=== PATIENT | male | born 1940 | race Caucasian/White ===

== ENCOUNTER 2018-05-12 13:06 | Emergency (ER) | payer MEDICARE, OTHER ==
[~2018-05-12] VITALS: Ht 172.7 cm; Wt 79.4 kg
--- NOTE | 2018-05-12 14:58 | Diagnostic Imaging Report ---
EXAMINATION: Head CT without contrast HISTORY: Status post fall x2, near syncope, head trauma, head pain, scalp laceration COMPARISON: None. TECHNIQUE: Multidetector axial images were obtained without contrast from the foramen magnum to the vertex . The images were reconstructed using brain and bone algorithms. Thin section brain images were reformatted into coronal and sagittal planes. Image quality: Motion/streaking artifact limits the evaluation of the skull base and posterior cranial fossa. Dose modulation, iterative reconstruction, and/or weight based adjustment of the mA/kV was utilized to reduce the radiation dose to as low as reasonably achievable. FINDINGS: Parenchyma: 1. Few scattered white matter hypodensities, most likely nonspecific minimal chronic microvascular ischemic changes, within normal limits for age. 2. No mass or hemorrhage. No CT evidence of acute territorial vascular insult. Extra-axial spaces:No abnormal density. No extra-axial fluid collections Brain volume: Normal for age. Ventricles: No hydrocephalus or displacement. Arteries: No density suggestive of thrombus. Dural sinuses: No abnormal density. Extra-axial spaces: No abnormal density. Foramen magnum: No mass, Chiari malformation, or basilar invagination. Sella: No obvious mass. Paranasal/mastoid sinuses: Imaged portions unremarkable. Skull/Scalp: No lytic or blastic lesions. No fractures. IMPRESSION: No intracranial abnormalities, particularly no posttraumatic hemorrhage. Signed by: Dr. Leatha Epps M.D. on 05/12/2018 2:54 PM
--- NOTE | 2018-05-12 15:08 | Diagnostic Imaging Report ---
Examination: Single AP view of the chest. COMPARISON: None. INDICATION: Syncope. Pain. DISCUSSION: Lines/tubes: None. Lungs: The lungs are well inflated and clear. There is no evidence of pneumonia or pulmonary edema. Pleura: There is no pleural effusion or pneumothorax. Heart and mediastinum: Cardiomediastinal silhouette is unremarkable. Pulmonary vasculature is normal. Bones and soft tissues: No acute bony abnormalities. Degenerative changes in the thoracic spine. IMPRESSION: 1. No acute cardiopulmonary abnormalities. Signed by: Dr. Thomas Dahl M.D. on 05/12/2018 3:05 PM
[2018-05-12 15:21] LABS: BASOPHILS % 0.5 % (0.0-1.0); EOSINOPHILS # (AUTO) 0.1 (0.0-0.4); EOSINOPHILS % 2.1 % (0.0-6.0); HEMATOCRIT 38.5 % (38.2-49.6); HEMOGLOBIN 12.8 g/dL (14.0-18.0); LYMPHOCYTES # (AUTO) 1.8 (1.0-3.2); LYMPHOCYTES % 31.5 % (18.0-39.1); MEAN CORPUSCULAR HGB CONC 33.2 g/dL (31-35); MEAN CORPUSCULAR VOLUME 96.3 fL (81-99); MONOCYTES # (AUTO) 0.6 (0.2-0.8); MONOCYTES % 10.2 % (4.4-11.3); NEUTROPHILS # (AUTO) 3.2 (2.1-6.9); NEUTROPHILS % 55.4 % (38.7-80.0); PLATELET COUNT 191 x10e3/uL (140-360); RED CELL DISTRIBUTION WIDTH 13.2 % (11.7-14.4)
[2018-05-12 15:26] LABS: INR 1.13; PROTHROMBIN TIME 13.6 seconds (11.9-14.5)
[2018-05-12 15:27] LABS: PARTIAL THROMBOPLASTIN TIME 29.5 seconds (23.8-35.5)
[2018-05-12 15:36] LABS: ALANINE AMINOTRANSFERASE 30 IU/L (0-55); ALBUMIN 4.3 g/dL (3.5-5.0); ALBUMIN/GLOBULIN RATIO 1.3 (0.8-2.0); ALKALINE PHOSPHATASE 59 IU/L (40-150); ANION GAP 15.2 mmol/L (8-16); BLOOD UREA NITROGEN 25 mg/dL (7-26); BUN/CREATININE RATIO 23 (6-25); CALCIUM 9.9 mg/dL (8.4-10.2); CARBON DIOXIDE 24 mmol/L (22-29); CHLORIDE 104 mmol/L (98-107); CREATINE KINASE 164 IU/L (30-200); CREATININE, SERUM 1.09 mg/dL (0.72-1.25); EST GLOMERULAR FILTRATION RATE > 60 ML/MIN (60-); GLUCOSE 71 mg/dL (74-118); MAGNESIUM 2.1 MG/DL (1.3-2.1); POTASSIUM 4.2 mmol/L (3.5-5.1); SODIUM 139 mmol/L (136-145)
[2018-05-12 15:53] VITALS: BP 135/74
[2018-05-12] MEDS ORDERED: SODIUM CHLORIDE 0.9% 1000ML 1,000 ML IV SCH ×2 (16:00)
[2018-05-12] MEDS ORDERED: LIDOCAINE 1% W/EPINEPHRINE 20 ML VIAL INJ ONE (16:00)
[2018-05-12] MEDS ORDERED: BACITRACIN ZINC 0.9GM TP ONE (16:00)
== END 2018-05-12 17:21 | disposition home or self-care (01) ==
LOC: ER 13:06
DX: S01.01XA Laceration without foreign body of scalp, initial encounter (principal); W01.0XXA Fall on same level from slipping, tripping and stumbling without subsequent striking against object, initial encounter; Y92.22 Religious institution as the place of occurrence of the external cause; F03.90 Unspecified dementia, unspecified severity, without behavioral disturbance, psychotic disturbance, mood disturbance, and anxiety; I10 Essential (primary) hypertension; E78.5 Hyperlipidemia, unspecified
CPT/HCPCS: 12001; 36415; 70450; 71045; 80053; 82550; 82553; 83735; 83880; 84484; 85025; 85610; 85730; 93005; 99284; J7030

== ENCOUNTER 2021-09-28 19:20 | Emergency (ER) | payer MEDICARE, OTHER ==
[~2021-09-28] VITALS: Ht 172.7 cm; Wt 79.4 kg
[2021-09-28 22:53] VITALS: BP 162/75
== END 2021-09-28 23:06 | disposition home or self-care (01) ==
LOC: ER 19:39
DX: S00.81XA Abrasion of other part of head, initial encounter (principal); W01.0XXA Fall on same level from slipping, tripping and stumbling without subsequent striking against object, initial encounter; Y93.01 Activity, walking, marching and hiking; Y92.008 Other place in unspecified non-institutional (private) residence as the place of occurrence of the external cause; F03.90 Unspecified dementia, unspecified severity, without behavioral disturbance, psychotic disturbance, mood disturbance, and anxiety; I10 Essential (primary) hypertension; E78.5 Hyperlipidemia, unspecified
CPT/HCPCS: 70450; 72125; 99284

== ENCOUNTER 2021-11-23 13:25 | Emergency (ER) | payer MEDICARE ==
[~2021-11-23] VITALS: Ht 172.7 cm; Wt 79.4 kg
[2021-11-23 17:14] VITALS: BP 150/76
== END 2021-11-23 16:50 ==
LOC: ER 13:32
DX: S00.212A Abrasion of left eyelid and periocular area, initial encounter (principal); W18.30XA Fall on same level, unspecified, initial encounter; Y92.098 Other place in other non-institutional residence as the place of occurrence of the external cause; F03.90 Unspecified dementia, unspecified severity, without behavioral disturbance, psychotic disturbance, mood disturbance, and anxiety; I10 Essential (primary) hypertension; E78.5 Hyperlipidemia, unspecified
CPT/HCPCS: 70450; 72125; 99284

== ENCOUNTER 2022-01-10 21:22 | Emergency (ER) | payer MEDICARE ==
[~2022-01-10] VITALS: Ht 172.7 cm; Wt 79.4 kg
[2022-01-10 21:45] LABS: BASOPHILS % 0.4 % (0.0-1.0); EOSINOPHILS # (AUTO) 0.3 (0.0-0.4); HEMATOCRIT 39.6 % (38.2-49.6); LYMPHOCYTES % 37.3 % (18.0-39.1); MEAN CORPUSCULAR HEMOGLOBIN 31.3 pg (28-32); MEAN CORPUSCULAR HGB CONC 32.8 g/dL (31-35); MEAN CORPUSCULAR VOLUME 95.2 fL (81-99); MONOCYTES # (AUTO) 0.9 (0.2-0.8); MONOCYTES % 10.7 % (4.4-11.3); NEUTROPHILS # (AUTO) 3.8 (2.1-6.9); NEUTROPHILS % 47.3 % (38.7-80.0); PLATELET COUNT 185 x10e3/uL (140-360); RED BLOOD COUNT 4.16 x10e6/uL (4.3-5.7); RED CELL DISTRIBUTION WIDTH 13.4 % (11.7-14.4)
[2022-01-10 22:12] LABS: ALBUMIN 3.8 g/dL (3.5-5.0); ANION GAP 12.5 mmol/L (8-16); CALCIUM 8.9 mg/dL (8.4-10.2); CREATININE, SERUM 1.12 mg/dL (0.72-1.25); POTASSIUM 4.5 mmol/L (3.5-5.1)
[2022-01-10 22:19] LABS: CREATINE KINASE MB 4.6 ng/mL (0-5.0)
[2022-01-10] MEDS ORDERED: IOPAMIDOL 370 MG/ML 100 ML INFUS..BTL INJ ONE (22:43)
[2022-01-10 23:53] VITALS: BP 148/82
== END 2022-01-11 01:15 | disposition home or self-care (01) ==
LOC: ER 21:26
DX: K56.41 Fecal impaction (principal); R10.31 Right lower quadrant pain; F03.90 Unspecified dementia, unspecified severity, without behavioral disturbance, psychotic disturbance, mood disturbance, and anxiety; I10 Essential (primary) hypertension; E78.5 Hyperlipidemia, unspecified; R94.31 Abnormal electrocardiogram [ECG] [EKG]; Z20.822 Contact with and (suspected) exposure to COVID-19
CPT/HCPCS: 36415; 70450; 74177; 80053; 82550; 82553; 83690; 84484; 85025; 93005; 99284; Q9967; U0002

== ENCOUNTER 2022-01-17 18:18 | Emergency (ER) | payer MEDICARE ==
[~2022-01-17] VITALS: Ht 172.7 cm; Wt 79.4 kg
[2022-01-17 20:49] VITALS: BP 149/84
== END 2022-01-17 20:33 | disposition home or self-care (01) ==
LOC: ER 18:25
DX: S01.81XA Laceration without foreign body of other part of head, initial encounter (principal); W18.39XA Other fall on same level, initial encounter; Y92.098 Other place in other non-institutional residence as the place of occurrence of the external cause; I10 Essential (primary) hypertension; E78.5 Hyperlipidemia, unspecified; F03.90 Unspecified dementia, unspecified severity, without behavioral disturbance, psychotic disturbance, mood disturbance, and anxiety
CPT/HCPCS: 70450; 72125; 99284

== ENCOUNTER 2022-02-07 22:05 | Emergency (ER) | payer MEDICARE, OTHER ==
[~2022-02-07] VITALS: Ht 172.7 cm; Wt 79.4 kg
[2022-02-08 01:54] VITALS: BP 154/94
== END 2022-02-08 03:03 | disposition home or self-care (01) ==
LOC: ER 22:37
DX: S00.83XA Contusion of other part of head, initial encounter (principal); W18.30XA Fall on same level, unspecified, initial encounter; Y92.89 Other specified places as the place of occurrence of the external cause; G30.9 Alzheimer's disease, unspecified; F02.80 Dementia in other diseases classified elsewhere, unspecified severity, without behavioral disturbance, psychotic disturbance, mood disturbance, and anxiety; I10 Essential (primary) hypertension; E78.5 Hyperlipidemia, unspecified; J44.9 Chronic obstructive pulmonary disease, unspecified; I25.10 Atherosclerotic heart disease of native coronary artery without angina pectoris; Z85.46 Personal history of malignant neoplasm of prostate
CPT/HCPCS: 70450; 70486; 72125; 99284

== ENCOUNTER 2022-03-25 15:04 | Observation (INO) | payer MEDICARE ==
[~2022-03-25] VITALS: Ht 172.7 cm; Wt 78.0 kg
[2022-03-25] MEDS ORDERED: SODIUM CHLORIDE FLUSH 10 ML SYR IV PRN (15:30)
[2022-03-25 15:42] LABS: BASOPHILS % 0.2 % (0.0-1.0); EOSINOPHILS # (AUTO) 0.1 (0.0-0.4); EOSINOPHILS % 2.3 % (0.0-6.0); HEMATOCRIT 40.5 % (38.2-49.6); HEMOGLOBIN 12.6 g/dL (14.0-18.0); LYMPHOCYTES # (AUTO) 2.6 (1.0-3.2); LYMPHOCYTES % 45.4 % (18.0-39.1); MEAN CORPUSCULAR HEMOGLOBIN 31.7 pg (28-32); MEAN CORPUSCULAR HGB CONC 31.1 g/dL (31-35); MEAN CORPUSCULAR VOLUME 101.8 fL (81-99); MONOCYTES # (AUTO) 0.6 (0.2-0.8); MONOCYTES % 9.9 % (4.4-11.3); NEUTROPHILS # (AUTO) 2.4 (2.1-6.9); PLATELET COUNT 179 x10e3/uL (140-360); RED BLOOD COUNT 3.98 x10e6/uL (4.3-5.7); RED CELL DISTRIBUTION WIDTH 13.2 % (11.7-14.4)
[2022-03-25 15:46] LABS: INR 0.95; PROTHROMBIN TIME 13.6 seconds (11.9-14.5)
[2022-03-25 15:47] LABS: PARTIAL THROMBOPLASTIN TIME 29.5 seconds (23.8-35.5)
[2022-03-25 15:51] LABS: CLARITY,URINE SL CLOUDY (CLEAR); COLOR,URINE YELLOW (YELLOW); KETONES,URINE TRACE (NEGATIVE); LEUKOCYTE ESTERASE ,URINE SMALL (NEGATIVE); NITRITE,URINE POSITIVE (NEGATIVE); PROTEIN,URINE DIPSTICK TRACE (NEGATIVE)
[2022-03-25 15:52] LABS: AMPHETAMINES SCREEN,URINE NEGATIVE (NEGATIVE); BENZODIAZEPINES SCREEN,URINE NEGATIVE (NEGATIVE); PHENCYCLIDINE SCREEN,URINE NEGATIVE (NEGATIVE); URINE UROBILINOGEN 1 mg/dL (0.2 - 1)
[2022-03-25 15:55] LABS: ALBUMIN 3.7 g/dL (3.5-5.0); ALBUMIN/GLOBULIN RATIO 1.1 (0.8-2.0); ANION GAP 16.5 mmol/L (8-16); CALCIUM 8.7 mg/dL (8.4-10.2); CREATININE, SERUM 1.39 mg/dL (0.72-1.25); POTASSIUM 4.5 mmol/L (3.5-5.1)
[2022-03-25 15:58] LABS: WBC,URINE (MAN) 21-50 /HPF (0-5)
[2022-03-25 15:59] LABS: BACTERIA,URINE MODERATE /HPF
[2022-03-25] MEDS ORDERED: SODIUM CHLORIDE 0.9% 1000ML 1,000 ML IV SCH (17:15)
[2022-03-25] MEDS ORDERED: ONDANSETRON HCL INJ 2MG/ML 2ML 2 MG/ML VIAL IV PRN (17:30)
[2022-03-25 20:00] VITALS: BP 145/63
[2022-03-25 20:20] VITALS: BP 168/88
[2022-03-25] MEDS ORDERED: NAMENDA10 MG PO (21:56)
[2022-03-25] MEDS ORDERED: PROTONIX20 MG PO (21:56)
[2022-03-25] MEDS ORDERED: ATIVAN1 MG PO (21:56)
[2022-03-25] MEDS ORDERED: MIDODRINE HCL2.5 MG PO (21:56)
[2022-03-25] MEDS ORDERED: DEPAKOTE SPRIN125 MG PO (21:56)
[2022-03-25] MEDS ORDERED: POLYETHYLENE GL17 GM PO (21:56)
[2022-03-25] MEDS ORDERED: ASPIRIN81 MG PO (21:56)
[2022-03-25] MEDS ORDERED: FLOMAX0.4 MG PO (21:56)
[2022-03-25] MEDS ORDERED: RAZADYNE ER8 MG PO (21:56)
[2022-03-25] MEDS ORDERED: LIPITOR20 MG PO (21:56)
[2022-03-25] MEDS ORDERED: CARVEDILOL3.125 MG PO (21:56)
[2022-03-25] MEDS: CARVEDILOL 3.125 MG TAB PO SCH (22:28)
[2022-03-25] MEDS: HEPARIN SOD (PORCINE) 5,000 UNIT/ML VIAL SC SCH (22:45)
[2022-03-25] MEDS: TAMSULOSIN HCL 0.4 MG CAP PO SCH (23:15)
[2022-03-25] MEDS: ATORVASTATIN 40 MG TAB PO SCH (23:15)
[2022-03-25] MEDS ORDERED: ACETAMINOPHEN 325 MG TAB PO PRN (23:15)
[2022-03-25] MEDS: MEMANTINE 10 MG TAB PO SCH (23:15)
[2022-03-26] VITALS (11 sets, daily range): BP systolic 114–168; BP diastolic 66–103
[2022-03-26] MEDS ORDERED: LORAZEPAM 0.5 MG TAB PO SCH
[2022-03-26] MEDS ORDERED: LORAZEPAM 0.5 MG TAB PO PRN
[2022-03-26 07:36] LABS: BASOPHILS % 0.5 % (0.0-1.0); EOSINOPHILS # (AUTO) 0.1 (0.0-0.4); EOSINOPHILS % 2.1 % (0.0-6.0); HEMATOCRIT 42.5 % (38.2-49.6); HEMOGLOBIN 13.3 g/dL (14.0-18.0); LYMPHOCYTES # (AUTO) 2.4 (1.0-3.2); LYMPHOCYTES % 42.6 % (18.0-39.1); MEAN CORPUSCULAR HEMOGLOBIN 31.9 pg (28-32); MEAN CORPUSCULAR HGB CONC 31.3 g/dL (31-35); MEAN CORPUSCULAR VOLUME 101.9 fL (81-99); MONOCYTES # (AUTO) 0.6 (0.2-0.8); MONOCYTES % 10.5 % (4.4-11.3); NEUTROPHILS # (AUTO) 2.5 (2.1-6.9); NEUTROPHILS % 44.1 % (38.7-80.0); PLATELET COUNT 173 x10e3/uL (140-360); RED BLOOD COUNT 4.17 x10e6/uL (4.3-5.7); RED CELL DISTRIBUTION WIDTH 13.1 % (11.7-14.4)
[2022-03-26 08:00] LABS: ALBUMIN 3.8 g/dL (3.5-5.0); ALBUMIN/GLOBULIN RATIO 1.2 (0.8-2.0); ANION GAP 13.7 mmol/L (8-16); CALCIUM 8.5 mg/dL (8.4-10.2); CREATININE, SERUM 1.09 mg/dL (0.72-1.25); POTASSIUM 4.7 mmol/L (3.5-5.1)
[2022-03-26] MEDS: GALANTAMINE HYDROBROMIDE 8 MG PO SCH (09:00)
[2022-03-26] MEDS ORDERED: DIVALPROEX SODIUM 125 MG TABDR...ER PO SCH (09:00)
[2022-03-26] MEDS: MEMANTINE 10 MG TAB PO SCH ×2 (10:08→17:14)
[2022-03-26] MEDS: CARVEDILOL 3.125 MG TAB PO SCH (10:09)
[2022-03-26] MEDS: POLYETHYLENE GLYCOL 3350 17 GM PACK PO SCH (10:10)
[2022-03-26] MEDS: ASPIRIN 81 MG CHEW TAB PO SCH (10:10)
[2022-03-26] MEDS: HEPARIN SOD (PORCINE) 5,000 UNIT/ML VIAL SC SCH ×2 (10:18→20:41)
[2022-03-26] MEDS ORDERED: HYDRALAZINE HCL 20 MG/ML VIAL IV PRN (10:30)
[2022-03-26] MEDS: VALPROATE 250MG/5ML ORAL LIQ 5ml PO SCH ×2 (10:50→17:14)
[2022-03-26] MEDS ORDERED: SODIUM CHLORIDE FLUSH 10 ML SYR IV ONE (18:00)
[2022-03-26] MEDS: ATORVASTATIN 40 MG TAB PO SCH (20:33)
[2022-03-26] MEDS: TAMSULOSIN HCL 0.4 MG CAP PO SCH (20:33)
[2022-03-26] MEDS: CARVEDILOL 12.5 MG TAB PO SCH (20:41)
[2022-03-27] VITALS (7 sets, daily range): BP systolic 112–139; BP diastolic 62–89
[2022-03-27] MEDS: GALANTAMINE HYDROBROMIDE 8 MG PO SCH (09:00)
[2022-03-27] MEDS: ASPIRIN 81 MG CHEW TAB PO SCH (09:34)
[2022-03-27] MEDS: VALPROATE 250MG/5ML ORAL LIQ 5ml PO SCH (09:34)
[2022-03-27] MEDS: MEMANTINE 10 MG TAB PO SCH (09:34)
[2022-03-27] MEDS: POLYETHYLENE GLYCOL 3350 17 GM PACK PO SCH (09:35)
[2022-03-27] MEDS: CARVEDILOL 12.5 MG TAB PO SCH (09:35)
[2022-03-27] MEDS: HEPARIN SOD (PORCINE) 5,000 UNIT/ML VIAL SC SCH (09:45)
[2022-03-27] MEDS ORDERED: ONDANSETRON HCL 4 MG ORAL DISINTEGRATING TAB PO PRN (11:00)
[2022-03-27] MEDS ORDERED: CIPROFLOXACIN 250 MG TAB PO SCH (11:00)
[2022-03-27] MEDS ORDERED: CIPROFLOXACIN250 MG PO (14:08)
== END 2022-03-27 16:58 ==
LOC: ER 15:14 → ERHOLD 17:30 → INTOOBSV 17:30 → MED/SURG2 20:30
PROVIDERS: ADMIT Internal Medicine; ATTEND Internal Medicine
DX: N39.0 Urinary tract infection, site not specified (principal); I10 Essential (primary) hypertension; J44.9 Chronic obstructive pulmonary disease, unspecified; Z87.891 Personal history of nicotine dependence; G93.41 Metabolic encephalopathy; B96.1 Klebsiella pneumoniae [K. pneumoniae] as the cause of diseases classified elsewhere; Z20.822 Contact with and (suspected) exposure to COVID-19; G30.9 Alzheimer's disease, unspecified; F02.80 Dementia in other diseases classified elsewhere, unspecified severity, without behavioral disturbance, psychotic disturbance, mood disturbance, and anxiety; Z85.46 Personal history of malignant neoplasm of prostate; G62.9 Polyneuropathy, unspecified; I25.10 Atherosclerotic heart disease of native coronary artery without angina pectoris; E87.2 Acidosis
CPT/HCPCS: 36415 ×2; 70450; 71045; 80053 ×2; 80307; 81001; 82607; 83605; 83880; 84443; 84484; 85025 ×2; 85610; 85730; 87040; 87086; 87186; 93005; 99251; 99285; G0378 ×3; J0696 ×2; J1644 ×3; J7030; U0002